=== PATIENT | female | born 1995 | race Hispanic/Latino ===

== ENCOUNTER 2024-08-29 19:00 | Inpatient (IN) | payer MEDICAID, OTHER, SELFPAY ==
[2024-08-29] MEDS ORDERED: Methylergonovine 0.2 MG/ML VIAL IM PRN (20:29)
[2024-08-29] MEDS ORDERED: fentaNYL 50 mcg/mL 1 mL Vial SLOW IVP PRN (20:29)
[2024-08-29] MEDS ORDERED: Ibuprofen 800 MG TAB PO PRN (20:29)
[2024-08-29] MEDS ORDERED: Diphenoxylate HCl/Atropine Tablet PO PRN ×2 (20:29)
[2024-08-29] MEDS ORDERED: hydrALAZINE 20 MG/ML VIAL SLOW IVP PRN (20:29)
[2024-08-29] MEDS ORDERED: Carboprost 250 MCG/ML AMP IM PRN (20:29)
[2024-08-29] MEDS ORDERED: Tranexamic Acid 1,000 MG/10 ML VIAL IVP PRN (20:29)
[2024-08-29] MEDS ORDERED: Misoprostol 200 MCG TAB PR PRN (20:29)
[2024-08-29] MEDS ORDERED: Acetaminophen 500 MG TAB PO PRN (20:29)
[2024-08-29] MEDS ORDERED: Promethazine HCl 25 MG/ML VIAL IM PRN (20:29)
[2024-08-29] MEDS ORDERED: Lidocaine 1% (PF) 30 ML VIAL SC PRN (20:29)
[2024-08-29] MEDS ORDERED: Oxytocin 30 units/NS 500 ML 500 ML IV SCH (20:30)
[2024-08-29] MEDS ORDERED: Lactated Ringer's 1,000 ML IV SCH (20:30)
[2024-08-29] MEDS ORDERED: Misoprostol 100 MCG TAB VAG SCH (20:30)
[2024-08-29 21:16] LABS: Hematocrit 34.4 % (34.9-44.5); Hemoglobin 11.4 g/dL (12.0-15.5); Mean Corpuscular HGB CONC 33.1 g/dL (32.0-36.0); Mean Corpuscular Hemoglobin 27.9 pg (27.0-33.0); Mean Corpuscular Volume 84.3 fL (81.6-98.3); Mean Platelet Volume 11.1 fL (7.4-10.4); Platelet Count 238 10x3/uL (150-450); RBC Distribution Width 13.7 % (11.5-14.5); Red Blood Cell (RBC) Count 4.08 10x6/uL (3.90-5.03)
[2024-08-29 21:33] VITALS: BMI 34.2
[2024-08-29 21:49] LABS: HBsAg Index 0.31 S/CO (0-0.99); Hep B Surf Ag - L&D Non-Reactive S/CO (NonReactive)
[2024-08-29 21:50] LABS: Syphilis Antibody Nonreactive (Nonreactive); Syphilis Antibody Index 0.05 S/CO (<1.00 Non-Reactive)
[2024-08-30 18:17] LABS: HIV (1/2) Antibody/Antigen Non-Reactive (NonReactive); HIV 1/2 INDEX 0.07 S/CO (<1.00)
[2024-08-31] MEDS: Oxytocin 30 units/NS 500 ML 500 ML IV SCH (00:54)
[2024-08-31] MEDS: fentaNYL/Ropivacaine Epidural 100 ML ONE (02:17)
[2024-08-31] MEDS ORDERED: Ondansetron PF 4 MG/2 ML Vial IVP PRN ×2 (02:46→05:39)
[2024-08-31] MEDS ORDERED: ePHEDrine Sulfate 50 MG/10 ML VIAL SLOW IVP PRN (02:46)
[2024-08-31] MEDS ORDERED: Acetaminophen 325 MG TAB PO PRN (02:46)
[2024-08-31] MEDS ORDERED: diphenhydrAMINE 50 MG/ML VIAL IVP PRN ×2 (02:46→05:40)
[2024-08-31] MEDS ORDERED: Moisturizing Cream (Eucerin) 113 GM JAR TOP PRN ×2 (02:46→05:40)
[2024-08-31] MEDS ORDERED: Lactated Ringer's 500 ML IV PRN (02:46)
[2024-08-31] MEDS ORDERED: Naloxone HCl 0.4 mg/ml Vial IVP PRN ×4 (02:46→05:40)
[2024-08-31] MEDS ORDERED: Promethazine HCl 25 MG/ML VIAL IM PRN ×2 (02:46→05:40)
[2024-08-31] MEDS ORDERED: Communication Order-Pharmacy FS SCH ×2 (03:00→05:45)
[2024-08-31] MEDS ORDERED: fentaNYL 2 mcg/Ropivacaine 0.2% Epidural 100 ML CADD EPIDURAL SCH (03:00)
[2024-08-31] MEDS: Ondansetron PF 4 MG/2 ML Vial IVP PRN ×2 (03:07→14:43)
[2024-08-31] MEDS ORDERED: Famotidine/PF 20 mg/2ml Vial SLOW IVP PRN (05:06)
[2024-08-31] MEDS ORDERED: Bicitra 30 ML UDCUP PO PRN ×2 (05:06→05:30)
[2024-08-31] MEDS ORDERED: hydrALAZINE 20 MG/ML VIAL SLOW IVP PRN (05:07)
[2024-08-31] MEDS ORDERED: Lanolin Ointment 7 GM TUBE TOP PRN (05:07)
[2024-08-31] MEDS ORDERED: CEFAZOLIN 2 GM in Sodium Chloride 0.9% 100 ML IVPB SCH (05:15)
[2024-08-31] MEDS ORDERED: Azithromycin 500 MG in Sodium Chloride 0.9% 250 ML 250 ML IVPB SCH (05:30)
[2024-08-31] MEDS ORDERED: fentaNYL 50 mcg/mL 1 mL Vial SLOW IVP PRN (05:39)
[2024-08-31] MEDS ORDERED: Meperidine HCl/PF 25 MG (1 mL) VIAL SLOW IVP PRN (05:39)
[2024-08-31] MEDS ORDERED: Naloxone HCl 0.4 mg/ml Vial IV PRN (05:40)
[2024-08-31] MEDS: Ketorolac Tromethamine 30 MG (1 mL) VIAL IVP SCH (06:35)
[2024-08-31] MEDS: Misoprostol 100 MCG TAB VAG SCH (10:29)
[2024-08-31] MEDS: Ketorolac Tromethamine 30 MG (1 mL) VIAL IVP PRN (14:43)
[2024-08-31] MEDS: Erythromycin Base 0.5% Oint 1 GM TUBE ONE (18:39)
[2024-08-31] MEDS: Prenatal Vitamin 1 TAB PO SCH (18:41)
[2024-08-31] MEDS: Dexamethasone 10 MG/ML VIAL ONE (18:42)
[2024-08-31] MEDS: Ferrous Sulfate 325 MG TAB PO SCH (18:42)
[2024-08-31] MEDS: Oxytocin 10 UNITS/ML VIAL ONE (18:42)
[2024-08-31] MEDS: Ondansetron PF 4 MG/2 ML Vial ONE (18:42)
[2024-08-31] MEDS: Morphine PF 10 MG/10 ML VIAL ONE (18:42)
[2024-08-31] MEDS: PHENYLEPHRINE-NS 100 MCG/ML 10 ML SYRINGE ONE ×2 (18:42)
[2024-08-31] MEDS: Azithromycin 500 MG VIAL ONE (18:43)
[2024-08-31] MEDS: Phytonadione Neonatal 1 MG/0.5 ML AMP ONE (18:43)
[2024-08-31] MEDS: CEFAZOLIN 2 GM VIAL ONE (18:43)
[2024-08-31] MEDS: Lidocaine 2% MPF 10 ML AMP (For Epidural Use) ONE (18:43)
[2024-08-31] MEDS: Docusate 100 MG CAP PO PRN (22:13)
[2024-09-01] MEDS: HYDROcodone/Acetaminophen 5/325 mg Tablet PO PRN (05:02)
[2024-09-01 05:37] LABS: Hematocrit 28.5 % (34.9-44.5); Hemoglobin 9.3 g/dL (12.0-15.5); Mean Corpuscular HGB CONC 32.6 g/dL (32.0-36.0); Mean Corpuscular Hemoglobin 28.2 pg (27.0-33.0); Mean Corpuscular Volume 86.4 fL (81.6-98.3); Mean Platelet Volume 11.2 fL (7.4-10.4); Platelet Count 218 10x3/uL (150-450); White Blood Cell (WBC) Count 11.89 10x3/uL (3.5-10.5)
[2024-09-01] MEDS: Hepatitis B Vaccine 10 MCG/0.5 ML SYR ONE (07:19)
[2024-09-01] MEDS: Boostrix 0.5 ML (Tdap) VIAL (>/=7 yrs of age) IM ONE (07:20)
[2024-09-01] MEDS: Simethicone Chewable 80 MG TAB PO PRN (09:07)
[2024-09-01] MEDS: Ibuprofen 800 MG TAB PO SCH (13:52)
[2024-09-02 08:58] VITALS: BP 121/70; TEMP 98.1
== END 2024-09-02 14:10 | disposition home or self-care (01) | DRG 788 ==
LOC: CSHLD 20:11 → CSHPP 08-31 12:00
PROVIDERS: ADMIT Obstetrics & Gynecology; ATTEND Obstetrics & Gynecology
PROC: 10H07YZ Insertion of Other Device into Products of Conception, Via Natural or Artificial Opening (ICD-10-PCS; 2024-08-30)
PROC: 10907ZC Drainage of Amniotic Fluid, Therapeutic from Products of Conception, Via Natural or Artificial Opening (ICD-10-PCS; 2024-08-30)
PROC: 10D00Z1 Extraction of Products of Conception, Low, Open Approach (ICD-10-PCS; principal; 2024-08-31)
DX: O76 Abnormality in fetal heart rate and rhythm complicating labor and delivery (principal); Z3A.39 39 weeks gestation of pregnancy; Z37.0 Single live birth; Z79.899 Other long term (current) drug therapy
CPT/HCPCS: 36415; 51702; 85027; 86780; 86850; 86900; 86901; 87340; 87389; J1100; J1885; J2274; J2405; J2590